=== PATIENT | male | born 1970 | race Caucasian/White ===

== ENCOUNTER → 2017-12-08 | Outpatient (CLI) | payer BC, OTHER | LOC: COL.RAD 10:16 | DX: M99.71 Connective tissue and disc stenosis of intervertebral foramina of cervical region (principal) ==

== ENCOUNTER → 2017-12-16 | Outpatient (CLI) | payer BC, OTHER ==
[~2017-12-16] VITALS: Ht 193 cm; Wt 110.7 kg
[~2017-12-16] MED LIST: SOMA 350MG350 MG/TAB PO; TYLENOL 500MG500 MG PO
[2017-12-16 07:00] VITALS: BP 143/99; PULSE 83
[2017-12-16 07:55] VITALS: BP 142/97; PULSE 81
== END ==
LOC: COL.RAD 06:30
DX: M50.323 Other cervical disc degeneration at C6-C7 level (principal)
CPT/HCPCS: J1100; Q9965